=== PATIENT | male | born 1945 | race Caucasian/White ===

== ENCOUNTER 2016-12-01 09:03 | Emergency (ER) | payer OTHER ==
[2016-12-01] MEDS ORDERED: NORMAL SALINE 1000 ML 1,000 ML IV ONE (09:32)
[2016-12-01] MEDS ORDERED: NORMAL SALINE 1000 ML 250 ML IV ONE (09:32)
[2016-12-01 09:54] LABS: HEMATOCRIT 31.2 % (37.9-51.0); HEMOGLOBIN 10.5 g/dL (13.5-17.0); HGB HCT DIFFERENCE 0.3; MEAN CORPUSCULAR HEMOGLOBIN 33.7 pg (27.0-33.4); MEAN CORPUSCULAR HGB CONC 33.7 g/dL (32.0-36.0); MEAN CORPUSCULAR VOLUME 100 fl (80-97); RED BLOOD COUNT 3.13 10^6/uL (4.35-5.55); RED CELL DISTRIBUTION WIDTH 18.4 % (11.5-14.0); WHITE BLOOD COUNT 17.5 10^3/uL (4.0-10.5)
--- NOTE | 2016-12-01 10:14 | EKG REPORT ---
SEVERITY:- ABNORMAL ECG - SINUS BRADYCARDIA FIRST DEGREE AV BLOCK PROBABLE LEFT ATRIAL ABNORMALITY RIGHT BUNDLE BRANCH BLOCK : Confirmed by: Inés Hein 01-Dec-2016 10:13:36
[2016-12-01 10:23] LABS: BASOPHILS % (MANUAL) 0 % (0-2); EOSINOPHILS % (MANUAL) 0 % (0-6); LYMPHOCYTES % (MANUAL) 2 % (13-45); TOTAL CELLS COUNTED 100
[2016-12-01 10:26] LABS: ANISOCYTOSIS 1+; TOXIC GRANULATION SLIGHT
[2016-12-01 10:27] LABS: BAND NEUTROPHILS % (MANUAL) 12 % (3-5); TOXIC VACUOLATION PRESENT
[2016-12-01] MEDS ORDERED: ONDANSETRON HCL INJ/PF 4 MG/2 ML SDV IV ONE ×2 (10:40→15:25)
[2016-12-01 11:07] LABS: ALANINE AMINOTRANSFERASE 778 U/L (21-72); ALBUMIN 4.3 g/dL (3.5-5.0); ALKALINE PHOSPHATASE 327 U/L (38-126); ANION GAP 18 (5-19); BILIRUBIN,DIRECT 2.2 mg/dL (0.0-0.3); BILIRUBIN,TOTAL 5.3 mg/dL (0.2-1.3); BLOOD UREA NITROGEN 15 mg/dL (7-20); CALCIUM 9.3 mg/dL (8.4-10.2); CARBON DIOXIDE 19 mmol/L (22-30); CHLORIDE 102 mmol/L (98-107); CREATINE KINASE 57 U/L (55-170); CREATININE RESULT 0.85 mg/dL (0.52-1.25); GLUCOSE 246 mg/dL (75-110); LIPASE 41.6 U/L (23-300); MAGNESIUM 1.3 mg/dL (1.6-2.3); POTASSIUM 4.6 mmol/L (3.6-5.0); SODIUM 138.6 mmol/L (137-145); TOTAL PROTEIN 7.3 g/dL (6.3-8.2)
[2016-12-01 11:19] LABS: CREATINE KINASE MB 0.63 ng/mL (<4.55); TROPONIN I 0.027 ng/mL
[2016-12-01 11:24] LABS: ASPARTATE AMINO TRANSFERASE 1195 U/L (17-59)
[2016-12-01 11:45] LABS: PROTHROMBIN TIME 31.4 SEC (11.4-15.4)
[2016-12-01 11:46] LABS: PARTIAL THROMBOPLASTIN TIME 34.5 SEC (23.5-35.8)
[2016-12-01 12:27] LABS: APPEARANCE,URINE CLEAR; BILIRUBIN,URINE SMALL (NEGATIVE); GLUCOSE, URINE >=500 mg/dL (NEGATIVE); KETONES,URINE 80 mg/dL (NEGATIVE); LEUKOCYTE ESTERASE,URINE NEGATIVE (NEGATIVE); NITRITE,URINE NEGATIVE (NEGATIVE); PROTEIN,URINE 100 mg/dL (NEGATIVE); URINE SPECIFIC GRAVITY 1.016
[2016-12-01] MEDS ORDERED: METRONIDAZOLE 500 MG/NS RTU 100 ML IV ONE (12:41)
[2016-12-01] MEDS ORDERED: ERTAPENEM SODIUM INJ 1 GM VIAL IV ONE (12:41)
--- NOTE | 2016-12-01 12:56 | ER Document Report ---
ED General - General Chief Complaint: Nausea/Vomiting Stated Complaint: NAUSEA, VOMITING TRAVEL OUTSIDE OF THE [place] IN LAST 30 DAYS: No - HPI Patient complains to provider of: fever nausea vomiting Notes: Patient coming in today for fever nausea vomiting. Patient state he is vomiting approximately 10-15 times since started night prior to arrival. Patient states day prior to arrival was not feeling well. Patient was found febrile temperature of 101.5 upon EMS arrival. Patient does have a significant cardiac history patient with pending cardiac workup at [facility] for possible valve replacement possible CABG versus stent placement. Patient was most be going to [place] today further studies however due to his condition continued to ER. Otherwise patient states has a history of cholecystectomy due to gangrene. Patient otherwise only complaining of some mild epigastric pain. No diarrhea. Patient is alert although bradycardic upon arrival seems to be asymptomatic she is requesting ice chips. - Related Data Allergies/Adverse Reactions: codeine [Codeine] Allergy (Verified 09/01/14 12:34) hydromorphone HCl [From Dilaudid] Allergy (Verified 09/01/14 12:34) Past Medical History - Social History Smoking Status: Unknown if Ever Smoked Family History: Reviewed & Not Pertinent - Past Medical History Cardiac Medical History: Reports: Hx Congestive Heart Failure, Hx Hypercholesterolemia, Hx Hypertension Endocrine Medical History: Reports: Hx Diabetes Mellitus Type 1, Hx Diabetes Mellitus Type 2 Psychiatric Medical History: Reports: Hx Depression Past Surgical History: Reports: Hx Cardiac Surgery - CABG, Hx Cholecystectomy - with gangrene - Immunizations Hx Diphtheria, Pertussis, Tetanus Vaccination: - unk Review of Systems - Review of Systems Constitutional: No symptoms reported EENT: No symptoms reported Cardiovascular: No symptoms reported Respiratory: No symptoms reported Gastrointestinal: Abdominal pain, Nausea, Vomiting Genitourinary: No symptoms reported Male Genitourinary: No symptoms reported Musculoskeletal: No symptoms reported Skin: No symptoms reported Hematologic/Lymphatic: No symptoms reported Neurological/Psychological: No symptoms reported -: Yes All other systems reviewed and negative Physical Exam - Vital signs Vitals: Temp 100.0 F 12/01/16 09:35 Interpretation: Bradycardic, Febrile - General General appearance: Appears well, Alert - HEENT Head: Normocephalic, Atraumatic Eyes: Normal Pupils: PERRL - Respiratory Respiratory status: No respiratory distress Chest status: Nontender Breath sounds: Normal Chest palpation: Normal - Cardiovascular Rhythm: Regular, Bradycardia Heart sounds: Normal auscultation Murmur: No Systolic murmur grade 1-6: 4 - Abdominal Inspection: Normal Distension: No distension Bowel sounds: Normal Tenderness: Nontender Organomegaly: No organomegaly - Back Back: Normal, Nontender - Extremities General upper extremity: Normal inspection, Nontender, Normal color, Normal ROM , Normal temperature General lower extremity: Normal inspection, Nontender, Normal color, Normal ROM , Normal temperature, Normal weight bearing. No: Sarbjit's sign - Neurological Neuro grossly intact: Yes Cognition: Normal Orientation: AAOx4 Luzmaria Coma Scale Eye Opening: Spontaneous Luzmaria Coma Scale Verbal: Oriented [place]joy Coma Scale Motor: Obeys Commands Lovejoy Coma Scale Total: 15 Speech: Normal Motor strength normal: LUE, RUE, LLE, RLE Sensory: Normal - Psychological Associated symptoms: Normal affect, Normal mood - Skin Skin Temperature: Warm Skin Moisture: Dry Skin Color: Normal Course - Re-evaluation Re-evalutation: 12/01/16 14:43 Patient lab work shows significant leukocytosis with bandemia. There is delay in getting the patient's Chem-12 results back also distally patient undergoing his CAT scan. CAT scan showed possible biliary stone blockage common bile stone with elevation in liver enzymes fever white count concern for known a choledocholithiasis but also a sending cholangitis. Discussed with transfer team ER physician Dr. Toney at [facility]. Patient was accepted in transfer. Antibiotic coverage consisted of Invanz and Flagyl. Patient was giving multiple fluid boluses and Nothing by mouth. Patient was also started on maintenance fluids. I did withhold the initial 30 mL/kg for resuscitation did patient has a very significant history of CHF a very significant heart murmur. Attempted full resuscitation without causing congestive heart failure - Vital Signs Vital signs: Temp Pulse Resp BP Pulse Ox 100.0 F 12/01/16 09:35 - Laboratory Result Diagrams: 12/01/16 09:26 12/01/16 10:15 Laboratory results interpreted by me: 12/01/16 12/01/16 12/01/16 09:26 10:15 11:19 WBC 17.5 H RBC 3.13 L Hgb 10.5 L Hct 31.2 L MCV 100 H MCH 33.7 H RDW 18.4 H Seg Neuts % (Manual) 86 H Band Neutrophils % 12 H Lymphocytes % (Manual) 2 L Monocytes % (Manual) 0 L Abs Neuts (Manual) 17.2 H Abs Lymphs (Manual) 0.4 L Abs Monocytes (Manual) 0.0 L PT 31.4 H Carbon Dioxide 19 L Glucose 246 H Magnesium 1.3 L Total Bilirubin 5.3 H Direct Bilirubin 2.2 H AST 1195 H ALT 778 H Alkaline Phosphatase 327 H Urine Protein Urine Glucose (UA) Urine Ketones Urine Bilirubin Urine Urobilinogen 12/01/16 11:56 WBC RBC Hgb Hct MCV MCH RDW Seg Neuts % (Manual) Band Neutrophils % Lymphocytes % (Manual) Monocytes % (Manual) Abs Neuts (Manual) Abs Lymphs (Manual) Abs Monocytes (Manual) PT Carbon Dioxide Glucose Magnesium Total Bilirubin Direct Bilirubin AST ALT Alkaline Phosphatase Urine Protein 100 H Urine Glucose (UA) >=500 H Urine Ketones 80 H Urine Bilirubin SMALL H Urine Urobilinogen 4.0 H Critical Care Note - Critical Care Note Total time excluding time spent on procedures (mins): 40 Comments: Multiple reevaluation patient with bradycardia fever possible sepsis Discharge - Discharge Clinical Impression: Choledocholithiasis, Ascending cholangitis, Pancreatitis due to common bile duct stone Fever Qualifiers: Fever type: unspecified Qualified Code(s): R50.9 - Fever, unspecified Nausea & vomiting Qualifiers: Vomiting type: unspecified Vomiting Intractability: non-intractable Qualified Code(s): R11.2 - Nausea with vomiting, unspecified Condition: Fair Disposition: [place] Referrals: JOSE ANGEL MINOR MD [Primary Care Provider] - Follow up as needed
[2016-12-01] MEDS ORDERED: NORMAL SALINE 1000 ML 500 ML IV ONE (13:09)
[2016-12-01 14:57] VITALS: BP 134/55
== END 2016-12-01 15:35 | disposition short-term general hospital (02) ==
LOC: ER 09:03
DX: K80.30 Calculus of bile duct with cholangitis, unspecified, without obstruction (principal); K85.10 Biliary acute pancreatitis without necrosis or infection; R50.9 Fever, unspecified; R11.2 Nausea with vomiting, unspecified
CPT/HCPCS: 93005; 99291; 96361; 96375; 96365; 96368; 36415; 87040; 82553; 82550; 83690; 83735; 85025; 85610; 85730; 87077; 80053; 81001; 84484; 87186; 83605; 87804; 71010; 71260; 74177; 93010; J1335; J2405; J7030